=== PATIENT | female | born 1935 | race Caucasian/White ===

== ENCOUNTER 2020-03-13 17:06 | Outpatient (NON) | payer MEDICARE, SELFPAY | END 2020-03-13 17:07 | LOC: CHSLAB 17:10 | PROVIDERS: Visit Provider Family Medicine | DX: N39.0 Urinary tract infection, site not specified (principal); A04.72 Enterocolitis due to Clostridium difficile, not specified as recurrent | CPT/HCPCS: 87077; 87086; 87088; 87186; 87324 ==

== ENCOUNTER 2020-04-12 14:53 | Outpatient (NON) | payer MEDICARE, SELFPAY ==
[2020-04-12 15:04] LABS: Basophils Absolute Auto 0.01 K/mm3 (0.00-0.10); Basophils Percent Auto 0.1 % (0.0-1.0); Eosinophils Absolute Auto 0.02 K/mm3 (0.02-0.50); Eosinophils Percent Auto 0.2 % (1.0-6.0); Hematocrit 30.6 % (35.0-42.0); Hemoglobin 9.7 g/dL (11.7-13.8); Immature Granulocyte Absolute 0.06 K/mm3 (0.00-0.00); Immature Granulocyte Percent A 0.5 % (0.0-0.0); Lymphocytes Percent Auto 5.3 % (18.0-42.0); Mean Corpuscular HGB Conc 31.7 g/dL (32.0-36.0); Mean Corpuscular Hemoglobin 29.2 pg (27.0-31.0); Mean Corpuscular Volume 92.2 fL (78.0-102.0); Mean Platelet Volume 10.9 fl (9.2-11.8); Monocytes Percent Auto 8.3 % (2.0-11.0); Neutrophils Absolute Auto 11.4 K/mm3 (1.7-7.2); Neutrophils Percent Auto 85.6 % (50.0-70.0); Platelet Count Result 271 K/mm3 (150-420); Red Blood Count 3.32 M/mm3 (4.20-5.40); Red Cell Distribution Width 13.2 % (11.6-14.4); White Blood Count 13.2 K/mm3 (4.8-10.8)
[2020-04-12 15:13] LABS: Alanine Aminotransferase 20 U/L (14-59); Albumin Level 2.2 g/dL (3.4-5.0); Alkaline Phosphatase 94 U/L (46-116); Amylase 21 U/L (25-115); Anion Gap 13 mmol/L (8-16); Aspartate Amino Transferase 23 U/L (15-37); Bilirubin,Total 0.4 mg/dL (0.00-1.00); Blood Urea Nitrogen 17 mg/dL (7-18); Calcium 7.9 mg/dL (8.5-10.1); Carbon Dioxide 20 mmol/L (21-32); Chloride 106 mmol/L (98-108); Estimated Glomerular Filt Rate 41; Glucose 137 mg/dL (70-99); Osmolality Calculated 291 mOsm/kg (285-295); Potassium 3.6 mmol/L (3.5-5.1); Sodium 139 mmol/L (136-145); Total Protein 5.1 g/dL (6.4-8.2)
[2020-04-12 15:21] LABS: BNP 95.6 pg/mL (0-100)
== END 2020-04-12 14:54 ==
LOC: CHSLAB 14:55
PROVIDERS: Visit Provider Family Medicine
DX: I82.412 Acute embolism and thrombosis of left femoral vein (principal); I12.9 Hypertensive chronic kidney disease with stage 1 through stage 4 chronic kidney disease, or unspecified chronic kidney disease; R06.00 Dyspnea, unspecified
CPT/HCPCS: 36415; 80053; 82150; 83880; 85025